=== PATIENT | female | born 1935 | race Caucasian/White ===

== ENCOUNTER 2017-12-07 14:34 | Emergency (ER) | payer MEDICARE, OTHER ==
[~2017-12-07] VITALS: Ht 152.4 cm; Wt 69.0 kg
[~2017-12-07 14:34] MED LIST: ALLO100 PO; ATEN1TAB74 PO; BENA1TAB44 PO; KLOR20TA6 PO; NEUR600T PO
[2017-12-07 14:45] VITALS: BP 118/58; PULSE 74; RESP 16; TEMP 98.8; O2SAT 96
--- NOTE | 2017-12-07 14:48 | PD ---
HPI Chief Complaint: DIARRHEA,NAUSEA/VOMITING Time Seen by Provider: 14:40 Travel History International Travel<30 days: No Contact w/Intl Traveler<30days: No Traveled to known affect area: No History of Present Illness HPI WHILE SHE WAS PLAYING DOMINOES WITH HER FRIENDS, SHE SUDDENLY DEVELOPED NAUSEA/ DIARRHEA, AND ABDOMINAL CRAMPS, 5/10, NONRADIATING, CRAMPY PAIN ONLY PRESENT JUST PRIOR TO BM ONLY. PATIENT DENIES ASSOC FACTORS SUCH FEVER/DIZZY/ LIGHTHEADED/CP/BACKPAIN/HEMATURIA/HEMATOCHEZIA PCP : DR SANDERS PMHX: HTN, HYPERLIP, PFSH Past Medical History Arthritis: Yes Asthma: No Autoimmune Disease: No Blood Disorders: No Anxiety: No Depression: No Heart Rhythm Problems: No Cancer: No Cardiovascular Problems: Yes High Cholesterol: No (UNKNOWN) Chest Pain: No COPD: No Cerebrovascular Accident: No Diabetes: No Diminished Hearing: No Endocrine: No GERD: Yes (" SOMETIME AGO") Glaucoma: No Gout: Yes Genitourinary: No Headaches: No Hepatitis: No Hiatal Hernia: No Hypertension: Yes Immune Disorder: No Kidney Stones: No Musculoskeletal: Yes Neurologic: Yes Psychiatric: No Reproductive: No Respiratory: Yes Migraines: No Myocardial Infarction: No Renal Failure: No Seizures: No Shingles: Yes Sickle Cell Disease: No Sleep Apnea: No Thyroid Disease: No Ulcer: No Past Surgical History Abdominal Surgery: Yes (APPENDECTOMY & CHOLECYSTECTOMY) AICD: No Appendectomy: Yes Arteriovenous Shunt: No Cardiac Surgery: No Cholecystectomy: Yes Ear Surgery: No Endocrine Surgery: No Eye Surgery: No Genitourinary Surgery: No Gynecologic Surgery: Yes (TOTAL HYSTERECTOMY) Hysterectomy: Yes Insulin Pump: No Joint Replacement: No Oral Surgery: Yes (REMOVAL OF TEETH) Pacemaker: No Thoracic Surgery: No Social History Alcohol Use: Yes (A GLASS OF WINE SOMETIMES WITH DINNER.) Tobacco Use: No Substance Use: No Allergies-Medications (Allergen,Severity, Reaction): Coded Allergies: celecoxib (Unverified Allergy, Severe, SEVERE MOUTH BLEEDING., 06/27/17) fexofenadine (Unverified Allergy, Severe, SEVERE SWEATING, 06/27/17) Reported Meds & Prescriptions Reported Meds & Active Scripts Active Reported Calcium 600+D Plus Minerals (Calcium Carbonate-Vitamin D W/Minerals) 600-400 Mg- Unit Tab 1 Tab PO BID Aspirin 81 Mg Chew 81 Mg CHEW DAILY Vitamin C (Ascorbic Acid) 250 Mg Chew 500 Mg CHEW DAILY B Complex (B-Complex Vitamins) 1 Cap 1 Cap PO DAILY Lutein 6 Mg Cap 6 Mg PO BID Metoprolol-Hydrochlorothiazide 25-12.5 Mg Tab 1 Tab PO DAILY Losartan (Losartan Potassium) 100 Mg Tab 100 Mg PO DAILY Review of Systems General / Constitutional: No: Fever Eyes: No: Visual changes HENT: No: Headaches Cardiovascular: No: Chest Pain or Discomfort Respiratory: No: Shortness of Breath Gastrointestinal: Positive: Diarrhea, Abdominal Pain Genitourinary: No: Dysuria Musculoskeletal: No: Pain Skin: No Rash Neurologic: No: Weakness Psychiatric: No: Depression Endocrine: No: Polydipsia Hematologic/Lymphatic: No: Easy Bruising Physical Exam Narrative GENERAL: SKIN: Warm and dry. HEAD: Atraumatic. Normocephalic. EYES: Pupils equal and round. No scleral icterus. No injection or drainage. ENT: No nasal bleeding or discharge. Mucous membranes pink and moist. NECK: Trachea midline. No JVD. CARDIOVASCULAR: Regular rate and rhythm. RESPIRATORY: No accessory muscle use. Clear to auscultation. Breath sounds equal bilaterally. GASTROINTESTINAL: Abdomen soft, non-tender, nondistended. MUSCULOSKELETAL: Extremities without clubbing, cyanosis, or edema. No obvious deformities. NEUROLOGICAL: Awake and alert. No obvious cranial nerve deficits. Motor grossly within normal limits. Five out of 5 muscle strength in the arms and legs. Normal speech. PSYCHIATRIC: Appropriate mood and affect; insight and judgment normal. Data Data Last Documented VS Vital Signs Date Time Temp Pulse Resp B/P (MAP) Pulse Ox O2 Delivery O2 Flow Rate FiO2 12/07/17 16:35 68 16 147/57 (87) 97 Room Air 12/07/17 14:45 98.8 Orders Orders Complete Blood Count With Diff (12/07/17 14:49) Comprehensive Metabolic Panel (12/07/17 14:49) Lipase (12/07/17 14:49) Iv Access Insert/Monitor (12/07/17 14:49) Ecg Monitoring (12/07/17 14:49) Oximetry (12/07/17 14:49) NPO (12/07/17 14:49) Ondansetron Inj (Zofran Inj) (12/07/17 15:00) Sodium Chloride 0.9% Flush (Ns Flush) (12/07/17 15:00) Sodium Chlor 0.9% 250 Ml Inj (Ns 250 Ml (12/07/17 15:00) Labs Laboratory Tests Test 12/07/17 15:00 White Blood Count 12.0 TH/MM3 Red Blood Count 4.48 MIL/MM3 Hemoglobin 13.0 GM/DL Hematocrit 40.1 % Mean Corpuscular Volume 89.4 FL Mean Corpuscular Hemoglobin 29.0 PG Mean Corpuscular Hemoglobin Concent 32.4 % Red Cell Distribution Width 12.6 % Platelet Count 255 TH/MM3 Mean Platelet Volume 8.9 FL Neutrophils (%) (Auto) 78.3 % Lymphocytes (%) (Auto) 11.3 % Monocytes (%) (Auto) 6.9 % Eosinophils (%) (Auto) 1.4 % Basophils (%) (Auto) 2.1 % Neutrophils # (Auto) 9.3 TH/MM3 Lymphocytes # (Auto) 1.4 TH/MM3 Monocytes # (Auto) 0.8 TH/MM3 Eosinophils # (Auto) 0.2 TH/MM3 Basophils # (Auto) 0.3 TH/MM3 CBC Comment DIFF FINAL Differential Comment Blood Urea Nitrogen 17 MG/DL Creatinine 0.80 MG/DL Random Glucose 111 MG/DL Total Protein 7.2 GM/DL Albumin 3.2 GM/DL Calcium Level 8.6 MG/DL Alkaline Phosphatase 69 U/L Aspartate Amino Transf (AST/SGOT) 18 U/L Alanine Aminotransferase (ALT/SGPT) 17 U/L Total Bilirubin 0.5 MG/DL Sodium Level 141 MEQ/L Potassium Level 3.9 MEQ/L Chloride Level 103 MEQ/L Carbon Dioxide Level 31.4 MEQ/L Anion Gap 7 MEQ/L Estimat Glomerular Filtration Rate 68 ML/MIN Lipase 145 U/L [facility] Medical Decision Making Medical Screen Exam Complete: Yes Emergency Medical Condition: Yes Medical Record Reviewed: Yes Differential Diagnosis BACTERIAL V VIRAL GASTROENTERITIS V PANCREATITIS Narrative Course NO MAJOR LEUKOCYTOSIS HOWEVER SOME NEUTROPHILIA NOTED...NORMAL ELECTROLYTES, NO ANEMIA. NORMAL LIVER/KIDNEY/PANCREAS FUNCTIONS. Diagnosis Primary Impression: ACUTE BACTERIAL GASTROENTERITIS Patient Instructions: Gastroenteritis (DC), General Instructions Scripts Tramadol (Ultram) 50 Mg Tab 50 MG PO Q6H Y for PAIN, #12 TAB 0 Refills Prov: Leobardo Ferreira MD 12/07/17 Ondansetron Odt (Zofran Odt) 4 Mg Tab 4 MG SL Q6HR Y for Nausea/Vomiting, #20 TAB 0 Refills Prov: Loebardo Ferreira MD 12/07/17 Metronidazole (Flagyl) 500 Mg Tab 500 MG PO TID for Infection for 7 Days, TAB 0 Refills Prov: Leobardo Ferreira MD 12/07/17 Ciprofloxacin (Cipro) 500 Mg Tab 500 MG PO BID for Infection for 5 Days, #10 TAB 0 Refills Prov: Leobardo Ferreira MD 12/07/17 Disposition: 01 DISCHARGE HOME Condition: Stable Leobardo Ferreira MD Dec 07, 2017 14:48
[2017-12-07] MEDS ORDERED: ONDANSETRON HCL 4 MG/2 ML VIAL IVP ONE (15:00)
[2017-12-07] MEDS ORDERED: SODIUM CHLOR 0.9% 250 ML INJ 250 ML IV ONE (15:00)
[2017-12-07] MEDS ORDERED: SODIUM CHLORIDE 0.9% FLUSH 10 ML FLUSH IV FLUSH PRN (15:00)
[2017-12-07 15:05] VITALS: O2SAT 96
[2017-12-07 15:23] VITALS: BP 100/56; PULSE 69; RESP 16; O2SAT 97
[2017-12-07] MEDS ORDERED: ASPI-516 CHEW (15:34)
[2017-12-07] MEDS ORDERED: LOSA100T PO (15:34)
[2017-12-07] MEDS ORDERED: VITA250C3 CHEW (15:34)
[2017-12-07] MEDS ORDERED: LUTE6CAP2 PO (15:34)
[2017-12-07] MEDS ORDERED: VITACAP7 PO (15:34)
[2017-12-07] MEDS ORDERED: CALCTAB33 PO (15:34)
[2017-12-07] MEDS ORDERED: METO-484 PO (15:34)
[2017-12-07 15:35] LABS: CHLORIDE 103 MEQ/L (98-107); SODIUM (NA) 141 MEQ/L (136-145)
[2017-12-07 15:37] LABS: CALCIUM 8.6 MG/DL (8.5-10.1)
[2017-12-07 15:38] LABS: ALBUMIN 3.2 GM/DL (3.4-5.0); BICARBONATE 31.4 MEQ/L (21.0-32.0); BLOOD UREA NITROGEN 17 MG/DL (7-18); GLUCOSE,RANDOM 111 MG/DL (74-106); LIPASE 145 U/L (73-393)
[2017-12-07 15:41] LABS: ALT (GPT) 17 U/L (10-53); AST (GOT) 18 U/L (15-37); GLOMERULAR FILTRATION RATE 68 ML/MIN (>89)
[2017-12-07 15:42] LABS: TOTAL BILIRUBIN ADULT 0.5 MG/DL (0.2-1.0)
[2017-12-07 15:43] LABS: TOTAL PROTEIN 7.2 GM/DL (6.4-8.2)
[2017-12-07 15:44] LABS: ALKALINE PHOSPHATASE 69 U/L (45-117)
[2017-12-07 16:00] LABS: AUTOMATED NEUTROPHIL # 9.3 TH/MM3 (1.8-7.7); BASOPHIL # 0.3 TH/MM3 (0-0.2); BASOPHIL % 2.1 % (0.0-2.0); EOSINOPHIL # 0.2 TH/MM3 (0-0.4); EOSINOPHIL % 1.4 % (0.0-4.0); HEMATOCRIT 40.1 % (35.0-46.0); LYMPH % 11.3 % (9.0-44.0); LYMPHOCYTE # 1.4 TH/MM3 (1.0-4.8); MEAN CELL VOLUME 89.4 FL (80.0-100.0); MEAN CORPUSCULAR HGB CONC 32.4 % (32.0-36.0); MEAN PLATELET VOLUME 8.9 FL (7.0-11.0); MONO % 6.9 % (0.0-8.0); MONOCYTE # 0.8 TH/MM3 (0-0.9); NEUT % 78.3 % (16.0-70.0); PLATELET COUNT 255 TH/MM3 (150-450); RED BLOOD COUNT 4.48 MIL/MM3 (4.00-5.30); RED CELL DISTRIBUTION WIDTH 12.6 % (11.6-17.2)
[2017-12-07 16:35] VITALS: BP 147/57; PULSE 68; RESP 16; O2SAT 97
[2017-12-07] MEDS ORDERED: METR-1 PO (17:28)
[2017-12-07] MEDS ORDERED: ZOFR4TAB3 SL (17:28)
[2017-12-07] MEDS ORDERED: CIPR-9 PO (17:28)
[2017-12-07] MEDS ORDERED: TRAM50 PO (17:28)
[2017-12-07 17:51] VITALS: BP 129/53
== END 2017-12-07 17:55 | disposition home or self-care (01) ==
LOC: PHED 14:34
DX: K52.9 Noninfective gastroenteritis and colitis, unspecified (principal); I10 Essential (primary) hypertension; E78.5 Hyperlipidemia, unspecified; Z87.39 Personal history of other diseases of the musculoskeletal system and connective tissue; Z86.79 Personal history of other diseases of the circulatory system; Z86.69 Personal history of other diseases of the nervous system and sense organs
CPT/HCPCS: 80053; 83690; 85025; 96361; 96374; 99284; J2405; J7050